=== PATIENT | female | born 1995 | race American Indian/Alaskan Native ===

== ENCOUNTER 2017-06-07 07:12 | Day surgery (SDC) | payer BC ==
[2014-05-25 12:56] VITALS: BMI 45.5
[2017-06-07] MEDS ORDERED: Propofol 10 mg/ml Inj (20 ML) ONE (08:44)
[2017-06-07] MEDS ORDERED: Lidocaine Hydrochloride 5 ML INJ ONE (08:44)
[2017-06-07 10:41] VITALS: TEMP 97.6
[2017-06-07 10:54] VITALS: BP 118/71; PULSE 72; RESP 18; O2SAT 99
== END 2017-06-07 10:53 | disposition home or self-care (01) ==
LOC: C.ENDO 07:12
PROVIDERS: ATTEND Internal Medicine Gastroenterology
DX: E66.01 Morbid (severe) obesity due to excess calories (principal); Z01.818 Encounter for other preprocedural examination; K29.70 Gastritis, unspecified, without bleeding
CPT/HCPCS: 43239; 82948; 84703; 88305; J2704